=== PATIENT | male | born 1965 | race Caucasian/White ===

== ENCOUNTER 2018-11-05 06:28 | Emergency (ER) | payer OTHER, SELFPAY ==
[2018-11-05 06:30] VITALS: BP 177/93; PULSE 75; RESP 16; TEMP 37.1; O2SAT 98; BMI 26.4
--- NOTE | 2018-11-05 08:05 | ED.VIS.GEN ---
History of Present Illness Chief Complaint: Other, Pain/Inj Informant: Patient Onset: Yesterday Current Severity: Mild Narrative: Patient complains of swelling to the left angle of the jaw area, began yesterday persisted today, he has not been ill in any way, no fever no cough no stridor drooling or difficulty swallowing or breathing. He hypertension all medical problems are within good control he is feeling fine otherwise. He indicates he had this process about 6 months to a year ago he was seen by an ENT physician in the [facility], that physician did multiple tests scans that were unremarkable recommended that he had a salivary gland stone that it be removed scheduled for surgery and just prior to the surgery the abscess comes fully resolved he has had no recurrence until yesterday Prior similar symptoms: Yes Past Medical History - Allergies and Home Meds Allergies/Adverse Reactions: Allergies acetaminophen [From Vicodin] Adverse Reaction (Verified 11/05/18 06:29) Other migraines hydrocodone [From Vicodin] Adverse Reaction (Verified 11/05/18 06:29) Other migraines Primary Care Physician: [facility] ,Out of [Primary Care Provider] - Past Medical History: - - See above Smoking Status: Current every day smoker Review of Systems General: Denies: Chills, Fever, Sweats Eyes: Denies: Visual changes - bilaterally, Diplopia ENT: Denies: Rhinorrhea, Sore throat Cardiovascular: Denies: Chest pain, Palpitations Respiratory: Denies: Dyspnea, Cough, Dyspnea on exertion Gastrointestinal: Denies: Abdominal pain, Nausea, Vomiting, Diarrhea, Melena, Hematochezia Genitourinary: Denies: Dysuria, Hematuria, Frequency Musculoskeletal: Denies: Back pain, Extremity Pain Skin: Denies: Rash, Wounds Neurological: Denies: Headache, Weakness, Numbness Physical Exam Vital Signs/Narrative: Vital Signs Temp Pulse Resp BP Pulse Ox 11/05/18 06:30 98.8 F 75 16 177/93 H 98 General: Well nourished, Well developed, No Acute Distress Head: Normocephalic, Atraumatic Eyes: Perrl, EOMI ENT: Moist mucous membranes, No rhinorrhea Neck: Supple, Nontender, - - Just to the left angle of the jaw there is an area of fullness, there is no warmth swelling crepitance this could certainly represent a salivary stone versus a lymph node is HEENT ear exam otherwise unremarkable nose and throat clear his speech is easy and understandable no stridor or drooling no complaints of difficulty breathing or swallowing and again the area is not fluctuant or really tender Cardiovascular: Regular rate, Regular rhythm, No murmurs Respiratory: No distress, CTA bilaterally, Chest nontender Abdomen: Soft, Nontender, Nondistended, Normal bowel sounds Back: Nontender, Normal Inspection Extremities: Nontender, No edema Skin: Normal color, No rash Neurological: Alert, Oriented x3, Cranial nerves II-XII grossly intact, Normal Strength, Normal Sensation Psychological: Normal affect, Normal Mood Diagnostic/Tx/Re-eval - Medical Decision Making Long conversation with the patient he is concerned that whatever the process was 6 months ago it has recurred indicates he was started on antibiotics, at this time he started on amoxicillin Naprosyn he is been instructed to use ice to the area and follow-up with his ENT physician [place] for further management return for change in symptoms and he will do so Final impression Swelling to the left angle jaw region Lymphadenopathy versus salivary stone, history of same ED Disposition - Plan for ED Patient: Referrals: [facility] Doctor,Out of [Primary Care Provider] -
--- NOTE | 2018-11-05 08:08 | ED.DCSUM_ITS ---
History of Present Illness Chief Complaint: Other, Pain/Inj Informant: Patient Onset: Yesterday Current Severity: Mild Narrative: Patient complains of swelling to the left angle of the jaw area, began yesterday persisted today, he has not been ill in any way, no fever no cough no stridor drooling or difficulty swallowing or breathing. He hypertension all medical problems are within good control he is feeling fine otherwise. He indicates he had this process about 6 months to a year ago he was seen by an ENT physician in the [facility], that physician did multiple tests scans that were unremarkable recommended that he had a salivary gland stone that it be removed scheduled for surgery and just prior to the surgery the abscess comes fully resolved he has had no recurrence until yesterday Prior similar symptoms: Yes Past Medical History - Allergies and Home Meds Allergies/Adverse Reactions: Allergies acetaminophen [From Vicodin] Adverse Reaction (Verified 11/05/18 06:29) Other migraines hydrocodone [From Vicodin] Adverse Reaction (Verified 11/05/18 06:29) Other migraines Primary Care Physician: [facility] ,Out of [Primary Care Provider] - Past Medical History: - - See above Smoking Status: Current every day smoker Review of Systems General: Denies: Chills, Fever, Sweats Eyes: Denies: Visual changes - bilaterally, Diplopia ENT: Denies: Rhinorrhea, Sore throat Cardiovascular: Denies: Chest pain, Palpitations Respiratory: Denies: Dyspnea, Cough, Dyspnea on exertion Gastrointestinal: Denies: Abdominal pain, Nausea, Vomiting, Diarrhea, Melena, Hematochezia Genitourinary: Denies: Dysuria, Hematuria, Frequency Musculoskeletal: Denies: Back pain, Extremity Pain Skin: Denies: Rash, Wounds Neurological: Denies: Headache, Weakness, Numbness Physical Exam Vital Signs/Narrative: Vital Signs Temp Pulse Resp BP Pulse Ox 11/05/18 06:30 98.8 F 75 16 177/93 H 98 General: Well nourished, Well developed, No Acute Distress Head: Normocephalic, Atraumatic Eyes: Perrl, EOMI ENT: Moist mucous membranes, No rhinorrhea Neck: Supple, Nontender, - - Just to the left angle of the jaw there is an area of fullness, there is no warmth swelling crepitance this could certainly represent a salivary stone versus a lymph node is HEENT ear exam otherwise unremarkable nose and throat clear his speech is easy and understandable no stridor or drooling no complaints of difficulty breathing or swallowing and again the area is not fluctuant or really tender Cardiovascular: Regular rate, Regular rhythm, No murmurs Respiratory: No distress, CTA bilaterally, Chest nontender Abdomen: Soft, Nontender, Nondistended, Normal bowel sounds Back: Nontender, Normal Inspection Extremities: Nontender, No edema Skin: Normal color, No rash Neurological: Alert, Oriented x3, Cranial nerves II-XII grossly intact, Normal Strength, Normal Sensation Psychological: Normal affect, Normal Mood Diagnostic/Tx/Re-eval - Medical Decision Making Long conversation with the patient he is concerned that whatever the process was 6 months ago it has recurred indicates he was started on antibiotics, at this time he started on amoxicillin Naprosyn he is been instructed to use ice to the area and follow-up with his ENT physician [place] for further management return for change in symptoms and he will do so Final impression Swelling to the left angle jaw region Lymphadenopathy versus salivary stone, history of same ED Disposition - Plan for ED Patient: Referrals: [facility] Doctor,Out of [Primary Care Provider] -
--- NOTE | 2018-11-05 08:09 | ED.DEP ---
ED Disposition - Plan for ED Patient: Instructions: ED Cervical Adenitis Antibio Tx Ch Prescriptions: Naproxen [Naprosyn] 500 mg PO BID PRN #20 tab Amoxicillin 500 mg PO TID #30 tab Referrals: [facility],Out of [Primary Care Provider] -
== END 2018-11-05 08:25 | disposition home or self-care (01) ==
LOC: ED 07:57
PROVIDERS: Emergency Provider Emergency Medicine
DX: R22.0 Localized swelling, mass and lump, head (principal); I10 Essential (primary) hypertension; F17.200 Nicotine dependence, unspecified, uncomplicated; Z79.82 Long term (current) use of aspirin; Z79.899 Other long term (current) drug therapy
CPT/HCPCS: 99282

== ENCOUNTER 2022-08-26 16:20 | Emergency (ER) | payer OTHER, SELFPAY ==
[2022-08-26 16:21] VITALS: BP 187/96; PULSE 75; RESP 19; TEMP 36.9; O2SAT 96; BMI 34.6
--- NOTE | 2022-08-26 16:37 | EDS_ITS ---
HPI History of Present Illness HPI Narrative: Patient presents with right hip pain that has been getting worse over the past 2 weeks. Patient states it has gradually gotten worse. Patient denies any trauma or injury. Patient describes the pain as sharp. Patient states pain is worse with standing. Patient states it is better with sitting. Patient denies any paresthesias or weakness. Patient states pain radiates to his right thigh. Patient denies any fevers or chills. Chief Complaint: Lower Extremity Injury Informant: patient Onset/Context/Timing Onset: Weeks (2) Context: Gradual Onset Timing: Continuous Quality of Pain: Sharp Location: Right hip and thigh Worsened by: Standing Relieved by: Sitting Associated Symptoms Associated Symptoms: Negative for Parasthesia, Weakness or Loss of Funtion PFSH PFSH Medical History CAD (coronary artery disease) Cervical vertebral fusion Essential hypertension Hypercholesterolemia Tobacco use Home Medications Lisinopril/Hydrochlorothiazide [Zestoretic 20/25 Tablet] 1 tab PO DAILY 06/12/14 [History Last Taken Unknown] nitroglycerin 0.4 mg sublingual tablet 0.4 mg sublingual Q5M PRN Chest Pain 06/12/14 [History Last Taken Unknown] pravastatin 20 mg tablet 10 mg PO DAILY 06/12/14 [History Last Taken Unknown] amoxicillin 500 mg tablet 500 mg PO TID #30 tabs 11/05/18 [Rx Last Taken Unknown] aspirin 325 mg tablet 325 mg PO DAILY@0800 11/05/18 [History Last Taken Unknown] naproxen 500 mg tablet 500 mg PO BID PRN #20 tabs 08/26/22 [Rx Last Taken Unknown] oxycodone-acetaminophen 5 mg-325 mg tablet 1 tab PO Q6H PRN PRN Pain 3 days #12 TABLETS 08/26/22 [Rx Last Taken Unknown] Allergy/AdvReac Type Severity Reaction Status Date / Time acetaminophen [From Vicodin] AdvReac Other Verified 08/26/22 16:23 hydrocodone [From Vicodin] AdvReac Other Verified 08/26/22 16:23 Surgical History (Updated 08/26/22 @ 16:[address] Jeet Mireles DO) Hx of heart artery stent Hx of shoulder surgery Social History Smoking Status: Current every day smoker tobacco type: cigarettes ROS ROS ED Constitutional Constitutional ED: Denies chills or fever(s) Eyes Eyes: Denies blurry vision or change in vision ENT ENT ED: Denies rhinorrhea or sore throat Cardiovascular Cardiovascular: Denies chest pain or palpitations Respiratory/Chest Respiratory/Chest: Denies cough or dyspnea Gastrointestinal Gastrointestinal: Denies nausea or vomiting Genitourinary Genitourinary ED: Denies dysuria or hematuria Musculoskeletal Musculoskeletal: Denies back pain or neck pain Integumentary Denies abscess or rash Neurologic Neurologic: Denies headache(s) or weakness Allergic/Immunologic Allergic/Immunologic ED: Denies mouth swelling or urticaria EXAM Physical Exam Const Vital Signs: 08/26/22 16:21 08/26/22 17:04 08/26/22 18:18 Temperature 98.5 F Temperature Source Temporal Pulse Rate 75 59 L 58 L Respiratory Rate 19 H 18 16 Blood Pressure 187/96 H 179/82 H 164/89 H Blood Pressure Mean 126 114 114 Pulse Ox 96 97 94 Oxygen Delivery Method Room Air Room Air Room Air Positive well nourished and well developed General Appearance ED: well developed HEENT Reports moist mucous membranes Neck full ROM and supple Extremity Extremity Narrative: There is tenderness over the anterior and lateral aspects of the right hip. The re is some mild pain with external rotation but there is no pain with internal rotation. There is no pain with flexion or extension. Strength is 5/5 bilaterally in the lower extremities. There are no sensory deficits noted. There is no obvious deformity. Neuro oriented x3, CN's II-XII intact bilaterally, moves all extremities and no sensory deficits noted Sensorium / Orientation: alert Motor Exam: strength 5/5 throughout Psych mental status grossly normal MDM MDM MDM Narrative Medical decision making narrative: Differential diagnosis includes arthritis, occult fracture, and muscular strain. X-rays of the right hip and pelvis will be obtained to assess for fracture. Radiography Diagnostic Testing: Clinical Impression(s) from Imaging Studies Hip/Pelvis X-Ray 08/26/22 17:10 IMPRESSION: No acute bony abnormality or significant arthropathy. Electronically Signed: Greg Corbin MD at 17:44 EDT Reading Location ID and State: [facility] / [place] Tel , Service support , X-rays of the right hip were obtained. There are 3 views. On my independent interpretation, there is no acute fracture or dislocation. There are some degenerative changes noted. Radiologist also interpreted the x-rays and agrees. Treatment and Re-Evaluation Narrative: Patient was given a dose of morphine here. Patient was able to ambulate here in the emergency department. Patient states his pain started to return after ambulating. Patient was given a dose of Toradol here. Patient was given prescription for Naprosyn. Patient was also given a prescription for a short course of oxycodone. Patient was instructed use ice to the area. Patient was instructed to follow-up with his primary care physician in 5 to 7 days. Patient was also given a referral for orthopedics. Patient understands and is agreeable with the plan. All questions were answered. Discharge Plan Triage Chief Complaint: Lower Extremity Injury ED Provider: Jeet Mireles Dx/Rx/DC Orders Clinical Impression: Strain of right hip Instructions: ED Hip Strain Prescriptions: New oxycodone-acetaminophen [oxycodone-acetaminophen] 5-325 mg tablet 1 tab PO Q6H PRN PRN (Reason: Pain) 3 Days Qty: 12 0RF Continued naproxen 500 MG tablet 500 mg PO BID PRN Qty: 20 0RF No Action nitroglycerin 0.4 MG tablet 0.4 mg sublingual Q5M PRN (Reason: Chest Pain) pravastatin 20 MG tablet 10 mg PO DAILY Lisinopril/Hydrochlorothiazide [Zestoretic 20/25 Tablet] 1 TABLET tablet 1 tab PO DAILY aspirin 325 MG tablet 325 mg PO DAILY@0800 amoxicillin 500 MG tablet 500 mg PO TID Qty: 30 0RF Primary Care Provider: WILSON WALTERS Referrals: Reynaldo Andera MD [Med Staff - Active Staff] - 5-7 Days [facility] Doctor,Out of [Non-Staff] - 5-7 Days Disposition Disposition: Home, Self Care
[2022-08-26] MEDS: Morphine 4 MG/ML Syringe IM (17:00)
[2022-08-26 17:04] VITALS: BP 179/82; PULSE 59; RESP 18; O2SAT 97
--- NOTE | 2022-08-26 17:10 | RAD_ITS ---
INDICATION: Trauma, right hip injury and pain, no known injury EXAMINATION/TECHNIQUE: X-RAY - XR Hip Unilateral with Pelvis when performed; 2-3 Views COMPARISON: None. FINDINGS: PELVIC BONES: No displaced fracture, destructive or sclerotic lesions. Note that overlapping bowel shadows may however obscure fine detail. Sacroiliac joints are unremarkable. No widening of the pubic symphysis. HIPS: Hip joint spaces well-maintained bilaterally. No displaced fracture identified. SOFT TISSUES: No soft tissue swelling or gas. RAD/HIP, UNI W/ Pelvis 2-3 Views IMPRESSION: No acute bony abnormality or significant arthropathy. Electronically Signed: Greg Corbin MD at 17:44 EDT ,
[2022-08-26 18:18] VITALS: BP 164/89; PULSE 58; RESP 16; O2SAT 94
--- NOTE | 2022-08-26 18:21 | ED.RN ---
pt walked in todd with director digital catalogue and did report that rt hip much more bearable after im morphine given. minimal pain radiating not down into thigh
[2022-08-26] MEDS: Ketorolac 60 MG/2 ML Vial IM (19:23)
[2022-08-26 19:27] VITALS: BP 164/95; PULSE 60; RESP 15; O2SAT 97
== END 2022-08-26 19:27 | disposition home or self-care (01) ==
PROVIDERS: Emergency Provider Emergency Medicine; Visit Provider Emergency Medicine
DX: S73.101A Unspecified sprain of right hip, initial encounter (principal); I25.10 Atherosclerotic heart disease of native coronary artery without angina pectoris; F17.210 Nicotine dependence, cigarettes, uncomplicated; X58.XXXA Exposure to other specified factors, initial encounter
CPT/HCPCS: 73502; 96372; 99282

== ENCOUNTER 2022-09-02 07:01 | Outpatient (RCR) | payer OTHER, SELFPAY ==
--- NOTE | 2022-09-02 08:01 | HP.PTEVAL_ITS ---
Patient's Visit Information JERZY NELSON is a 57 year old M referred to Physical Therapy by Dr. Reynaldo Andrea MD with a diagnosis of Right Lumbar Radiculopathy. Date of Evaluation: 09/02/22 Physical Therapist: Layla Levy DPT - Visit Plan Frequency: 2x /Week Duration: 4 Weeks Plan: Patient to hold until he has MRI and sees Dr. Davis next week as he has a 20 visit limit and $40 co-pay- will follow up with PT after apt on Tuesday. Until then he will continue with rest, AD for gait to unload the right side and inflammation control. Pt encouraged to call if questions or concerns - Subjective Patient reports that he has pain in the right hip and upper thigh that has been about 3 weeks- insidious onset. He went to the ortho who checked his hip and it looked good and did an x-ray which showed compression in the spine so he set him up with the spine MD. He has an MRI and then sees Dr. Davis on Tuesday. Sleep: is very hard- he max is like 1-2 hours at a time- lately a side sleeper- he is now sleeping in the recliner which helps a bit. They gave him a a dose pack and gabapentin and feels that dose pack did help. Worst: 05/01. Agg: standing Best: 07/30 Eases: hard back chair leaning forwards on the kitchen table. Desc ribes the pain as sharp/shooting- stabbing pains. The pain in the leg is a caryl horse in the lateral aspect and on the top of the quad. No pain in the buttock area or down the back of the leg. He has had neck surgery and it felt exactly the same way. No current change in bowel of bladder. A couple of months he had issues with bladder. No N/T in the toes. 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 PMHx/Meds: no changes since saw ortho. - Objective Posture: severe rounded forward posture-unable to correct and stand erect even with verbal and tactile cues due to pain in the lumbar spine - very guarded Gait: slow elo with decreased trunk rotation- hunched forwards posture ROM: Lumbar: Flexion: hands to mid galvan, Extn: neutral with pain, SB and Rotation: WFL but does report pain with SB to the right and rotation to the left Hip/Knee/Ankle: WFL. Palpation: tender along right paraspinals L3-5, right hip, ITBand and quad. Strength: Ankle: 4+/5, Knee: 4+/5, Hip: 4/5 throughout, Core: poor. Flex: HS: severe Gastroc: moderate, Sensation: WNL to gross touch bilateral LE. Severe pain with all testing today. - Balance/Special Test Scores Oswestry Low Back Score: 29 - Goals Goal 1:: Patient will be I with HEP and progression Goal Time Frame: 4-6 Weeks Goal 2:: Patient will report no radicular s/s Goal Time Frame: 4-6 Weeks Goal 3:: Patient will demo regular movement patterns Goal Time Frame: 4-6 Weeks Goal 4:: Patient will report 80% improvement Goal Time Frame: 4-6 Weeks - Rehabilitation Potential Physical Therapy Diagnosis: Patient presents with hypomobility- he has painful ROM, decreased LE and core strength/stabilization, flex, proprioception. and muscular endurance leading to poor posture and decreased ability to perform ADL's and radicular s/s. Rehabilitation Potential: Fair - Anticipated Interventions Patient/Client Instruction: Educate patient on: Benefits of Fitness Program Therapeutic Exercise to Include: Strength training, Endurance training, Body mechanics, Postural training, Neuromotor development, Passive ROM, Active ROM, Dynamic Lumbar Stabilization, [place]uy Exercises, Scapular Strength/Stabilization TENS: Yes Cryotherapy (ice pack, ice massage): Yes Thermo therapy (hot pack): Yes Ultrasound (thermal/non thermal): Yes Thank you for the opportunity to evaluate your patient. For Medicare and Medicare HMO plans, please review the plan of care and approve it. It will need to be FAXED BACK to us at [phone] for Medicare purposes. For Medicare only, by signing this I certify the plan of care. Please let me know if there are questions or concerns regarding this plan of care. Physician Signature: Date:
--- NOTE | 2022-12-06 12:05 | HP.PTDCSUM ---
Discharge Summary D/C summary: It has been my pleasure to treat JERZY NELSON referred by Dr. Reynaldo Andrea MD, with the diagnosis of Right Lumbar Radiculopathy for a total of 1 visit(s). Discharge Date: Please see the following information for a summary of their discharge status. Goals Goal 1:: Patient will be I with HEP and progression Goal 2:: Patient will report no radicular s/s Goal 3:: Patient will demo regular movement patterns Goal 4:: Patient will report 80% improvement Plan Plan: Patient to hold until he has MRI and sees Dr. Davis next week as he has a 20 visit limit and $40 co-pay- will follow up with PT after apt on Tuesday. Until then he will continue with rest, AD for gait to unload the right side and inflammation control. Pt encouraged to call if questions or concerns D/C Information d/c sentence: If there are questions or concerns regarding this patient's physical therapy, please feel free to call me at [phone]. Thank you for the referral of this patient. Sincerely, Layla Levy, WENCESLAOT Balance/Gait/Functional tests Balance/Special Test Scores Oswestry Low Back Score: 29
== END 2022-09-02 19:00 | disposition home or self-care (01) ==
LOC: PT 07:01
PROVIDERS: Referring Provider Orthopaedic Surgery Sports Medicine; Visit Provider Orthopaedic Surgery Sports Medicine
DX: S76.011D Strain of muscle, fascia and tendon of right hip, subsequent encounter (principal); M54.16 Radiculopathy, lumbar region
CPT/HCPCS: 97162

== ENCOUNTER → 2022-09-08 | Outpatient (CLI) | payer OTHER, SELFPAY ==
--- NOTE | 2022-09-08 07:00 | MRI_ITS ---
STUDY: MRI LUMBAR SPINE WITHOUT CONTRAST REASON FOR EXAM: Male, 57 years old. Right-sided lumbar radiculopathy. TECHNIQUE: Standardized fat and water weighted pulse sequences were obtained in the sagittal and axial planes. COMPARISON: Lumbar spine radiographs 08/27/2022. FINDINGS: T11-T12: (Sagittal only). Normal T11 inferior endplate. Slight anterior wedging of T12 superior endplate is presumably from remote injury and unchanged. Mild central disc space height narrowing. No ventral extradural defect. Normal central canal and bilateral intervertebral neural foramina. T12-L1: (Sagittal only). Normal endplates. Normal disc height and morphology. Normal central canal and bilateral intervertebral neural foramina. Normal lumbar lordosis. There is no substantial scoliosis. Normal conus medullaris that terminates at the T12-L1 disc space level. L1-2: Normal endplates. Normal disc height, hydration and morphology. Normal bilateral facet joints. Normal central canal and bilateral lateral recesses. Normal bilateral intervertebral neural foramina. L2-3: Prominent anterior marginal spurs with endplate sclerosis. Mild disc space height narrowing. Mild ventral extradural defect due to small posterior bulging annulus. No significant facet arthropathy. Mild dorsal epidural lipomatosis. Mild central canal stenosis with an AP canal diameter of 9 mm. Normal bilateral lateral recesses. Normal bilateral intervertebral neural foramina. L3-4: Normal endplates. Normal disc height and morphology. No significant facet arthropathy. Prominent dorsal epidural lipomatosis. Mild central canal stenosis with an AP canal diameter of 8 mm. Normal bilateral lateral recesses. Normal bilateral intervertebral neural foramina. L4-5: Mild endplate sclerosis is more obvious on lumbar spine radiographs. Mild disc space height narrowing. Suspicious right-sided far lateral disc protrusion into the right intervertebral neural foramen with lateral displacement of the right L4 nerve (series 8, images 6-7; series 5 and 6, image 14). No significant facet arthropathy. Moderate central canal stenosis with an AP canal diameter 7 mm. Normal bilateral lateral recesses. Mild to moderate stenosis of the right intervertebral neural foramen. Mild stenosis of the left intervertebral neural foramen. L5-S1: Normal endplates. Pronounced disc space height narrowing. Mild degenerative retrolisthesis of L5 on S1 accentuated by a shorter AP dimension of the S1 body. No significant facet arthropathy. Normal central canal. Suspicious right posterior disc protrusion causing right lateral recess stenosis. Normal left lateral recess. Mild stenosis of the bilateral intervertebral neural foramina. Normal visualized sacral ala. Normal visualized paraspinous soft tissue structures. MRI/Spine Lumbar (Routine) IMPRESSION: 1. Suspicious right L4-5 far lateral disc protrusion into the right intervertebral neural foramen with lateral displacement of the right L4 nerve, moderate central canal stenosis with an AP canal diameter 7 mm and mild to moderate stenosis of the right intervertebral neural foramen. 2. Suspicious right L5-S1 posterior disc extrusion causing right lateral recess stenosis and probable displacement of the right S1 nerve root sleeve. Additionally, mild degenerative retrolisthesis of L5 on S1 accentuated by shorter AP dimension of the S1 body. 3. Mild central canal stenosis at L2-L3 disc space level with an AP canal diameter of 9 mm and small posterior bulging annulus. 4. Mild central canal stenosis at L3-L4 disc space level with an AP canal diameter of 8 mm. Electronically Signed: Kenan Jarquin MD at 13:25 EDT ,
== END | disposition home or self-care (01) ==
PROVIDERS: Referring Provider Orthopaedic Surgery Sports Medicine; Visit Provider Orthopaedic Surgery Sports Medicine
DX: M54.16 Radiculopathy, lumbar region (principal)
CPT/HCPCS: 72148